=== PATIENT | male | born 1970 | race Caucasian/White ===

== ENCOUNTER 2022-11-27 22:21 | Inpatient (IN) | payer BC, SELFPAY ==
[2022-11-27 23:17] VITALS: BMI 38.5
[2022-11-27] MEDS ORDERED: Dextrose 50% Abboject 50 ML SYRINGE SLOW IVP PRN (23:53)
[2022-11-27] MEDS ORDERED: Acetaminophen 325 MG TAB PO PRN (23:53)
[2022-11-27] MEDS ORDERED: Dextrose 5% in Water 1,000 ML IV PRN (23:53)
[2022-11-27] MEDS ORDERED: Ondansetron PF 4 MG/2 ML Vial IVP PRN (23:53)
[2022-11-27] MEDS ORDERED: Ondansetron ODT 4 MG TAB PO PRN (23:53)
[2022-11-27] MEDS ORDERED: Glucagon 1 MG/ML KIT IM PRN (23:53)
[2022-11-28 00:13] LABS: #Basophils 0.1 thou/uL (0.0-0.2); #Eosinphils 0.2 thou/uL (0.0-0.7); #Monocytes 0.7 thou/uL (0.11-0.59); #Neutrophils 5.6 thou/uL (1.40-6.50); %Basophils 1.3 % (0.0-1.0); %Eosinophils 1.9 % (0.0-10.0); %Lymphocytes 26.6 % (21.0-51.0); %Monocytes 7.5 % (0.0-10.0); %Neutrophils 62.4 % (42.0-75.0); Hemoglobin 13.1 g/dL (14.0-18.0); Mean Corpuscular HGB CONC 34.6 g/dL (32.0-36.0); Mean Corpuscular Hemoglobin 29.5 pg (27.0-31.0); Mean Corpuscular Volume 85.4 fl (78.0-98.0); Mean Platelet Volume 12.7 fL (7.4-10.4); Platelet Count 167 10x3/uL (130-400); RBC Distribution Width 12.6 % (11.5-14.5); Red Blood Cell (RBC) Count 4.44 mill/uL (4.70-6.10)
[2022-11-28 00:34] LABS: Hemoglobin A1c 11.3 % (4.0-6.0)
[2022-11-28 00:35] LABS: ALT (SGPT) 20 U/L (8-55); AST (SGOT) 20 U/L (5-34); Albumin 3.7 g/dL (3.5-5.0); Alkaline Phosphatase 92 U/L (40-110); Anion Gap 13 mmol/L (10-20); BUN (Urea Nitrogen) 13 mg/dL (8.9-20.6); Bilirubin, Total 0.4 mg/dL (0.2-1.2); Calc. Creatinine Clearance 121 mL/min (70-130); Calcium 8.8 mg/dL (7.8-10.44); Carbon Dioxide 22 mmol/L (22-29); Chloride 107 mmol/L (98-107); Estimated GFR 69; Glucose 293 mg/dL (70-105); Magnesium 2.1 mg/dL (1.6-2.6); Potassium 3.4 mmol/L (3.5-5.1); Protein, Total 6.7 g/dL (6.0-8.3); Sodium 139 mmol/L (136-145)
[2022-11-28 05:37] LABS: Cardiac Risk 3.2 (Less than 4.5)
[2022-11-28] MEDS: HumaLOG 300 UNITS/3 ML VIAL SC PRN ×3 (06:39→19:00)
[2022-11-28] MEDS ORDERED: Potassium Chloride 20 MEQ TAB PO SCH (08:15)
[2022-11-28] MEDS ORDERED: Lorazepam 2 MG/ML VIAL SLOW IVP SCH ×2 (09:00)
[2022-11-28] MEDS: Aspirin 81 mg Enteric Coated Tablet PO SCH (09:33)
[2022-11-28] MEDS: hydrALAZINE 20 MG/ML VIAL SLOW IVP PRN ×2 (09:38→20:20)
[2022-11-28] MEDS ORDERED: Clopidogrel Bisulfate 75 MG TAB PO SCH (10:00)
[2022-11-28] MEDS: Atorvastatin Calcium 40 MG TAB PO SCH (20:20)
[2022-11-29] MEDS: HumaLOG 300 UNITS/3 ML VIAL SC PRN ×5 (00:22→20:21)
[2022-11-29] MEDS: hydrALAZINE 20 MG/ML VIAL SLOW IVP PRN (05:25)
[2022-11-29 05:59] LABS: Anion Gap 10 mmol/L (10-20); BUN (Urea Nitrogen) 11 mg/dL (8.9-20.6); Calc. Creatinine Clearance 124 mL/min (70-130); Calcium 9.6 mg/dL (7.8-10.44); Carbon Dioxide 24 mmol/L (22-29); Chloride 107 mmol/L (98-107); Estimated GFR 72; Glucose 246 mg/dL (70-105); Magnesium 2.1 mg/dL (1.6-2.6); Potassium 3.3 mmol/L (3.5-5.1); Sodium 138 mmol/L (136-145)
[2022-11-29 06:39] LABS: #Basophils 0.1 thou/uL (0.0-0.2); #Eosinphils 0.2 thou/uL (0.0-0.7); #Monocytes 0.7 thou/uL (0.11-0.59); #Neutrophils 4.5 thou/uL (1.40-6.50); %Basophils 1.2 % (0.0-1.0); %Eosinophils 2.5 % (0.0-10.0); %Lymphocytes 31.5 % (21.0-51.0); %Monocytes 8.3 % (0.0-10.0); %Neutrophils 56.3 % (42.0-75.0); Hemoglobin 14.4 g/dL (14.0-18.0); Mean Corpuscular HGB CONC 34.9 g/dL (32.0-36.0); Mean Corpuscular Hemoglobin 29.4 pg (27.0-31.0); Mean Corpuscular Volume 84.5 fl (78.0-98.0); Mean Platelet Volume 13.3 fL (7.4-10.4); Platelet Count 183 10x3/uL (130-400); RBC Distribution Width 12.8 % (11.5-14.5); Red Blood Cell (RBC) Count 4.89 mill/uL (4.70-6.10); White Blood Cell (WBC) Count 8.1 10x3/uL (4.8-10.8)
[2022-11-29] MEDS ORDERED: Potassium Chloride 20 MEQ TAB PO SCH (09:45)
[2022-11-29] MEDS: Aspirin 81 mg Enteric Coated Tablet PO SCH (09:48)
[2022-11-29] MEDS: Clopidogrel Bisulfate 75 MG TAB PO SCH (09:49)
[2022-11-29] MEDS: Alogliptin 25 MG TAB PO SCH (09:49)
[2022-11-29] MEDS ORDERED: Labetalol HCl 100 MG/20 ML VIAL SLOW IVP PRN (17:21)
[2022-11-29] MEDS: Atorvastatin Calcium 40 MG TAB PO SCH (20:21)
[2022-11-30] MEDS: HumaLOG 300 UNITS/3 ML VIAL SC PRN ×3 (05:18→18:06)
[2022-11-30 05:30] LABS: #Basophils 0.1 thou/uL (0.0-0.2); #Eosinphils 0.2 thou/uL (0.0-0.7); #Monocytes 0.8 thou/uL (0.11-0.59); #Neutrophils 4.2 thou/uL (1.40-6.50); %Basophils 1.2 % (0.0-1.0); %Eosinophils 2.7 % (0.0-10.0); %Lymphocytes 34.6 % (21.0-51.0); %Monocytes 9.5 % (0.0-10.0); %Neutrophils 51.6 % (42.0-75.0); Hemoglobin 14.3 g/dL (14.0-18.0); Mean Corpuscular Hemoglobin 28.7 pg (27.0-31.0); Mean Corpuscular Volume 84.3 fl (78.0-98.0); Mean Platelet Volume 13.4 fL (7.4-10.4); Platelet Count 180 10x3/uL (130-400); RBC Distribution Width 12.9 % (11.5-14.5); Red Blood Cell (RBC) Count 4.98 mill/uL (4.70-6.10); White Blood Cell (WBC) Count 8.1 10x3/uL (4.8-10.8)
[2022-11-30 05:53] LABS: Anion Gap 12 mmol/L (10-20); BUN (Urea Nitrogen) 14 mg/dL (8.9-20.6); Calc. Creatinine Clearance 116 mL/min (70-130); Calcium 9.3 mg/dL (7.8-10.44); Carbon Dioxide 22 mmol/L (22-29); Chloride 105 mmol/L (98-107); Estimated GFR 66; Glucose 189 mg/dL (70-105); Potassium 3.3 mmol/L (3.5-5.1); Sodium 136 mmol/L (136-145)
[2022-11-30] MEDS: Alogliptin 25 MG TAB PO SCH (08:23)
[2022-11-30] MEDS: Clopidogrel Bisulfate 75 MG TAB PO SCH (08:24)
[2022-11-30] MEDS: Aspirin 81 mg Enteric Coated Tablet PO SCH (08:24)
[2022-11-30] MEDS ORDERED: Potassium Chloride 20 MEQ TAB PO SCH ×2 (08:30→12:00)
[2022-11-30] MEDS ORDERED: Lisinopril 20 MG TAB PO SCH (09:00)
[2022-11-30] MEDS ORDERED: Carvedilol 3.125 MG TAB PO SCH ×2 (11:45→17:00)
[2022-11-30 18:29] VITALS: BP 141/95; TEMP 97.2
== END 2022-11-30 19:20 | disposition home or self-care (01) | DRG 66 ==
LOC: NEURO 22:49 → OBSVTOIN 11-28 10:49
PROVIDERS: ADMIT Student in an Organized Health Care Education/Training Program; ATTEND Internal Medicine
DX: I63.9 Cerebral infarction, unspecified (principal); E11.65 Type 2 diabetes mellitus with hyperglycemia; I10 Essential (primary) hypertension; R29.810 Facial weakness; R47.1 Dysarthria and anarthria; E66.9 Obesity, unspecified; Z98.890 Other specified postprocedural states; Z79.899 Other long term (current) drug therapy; Z79.84 Long term (current) use of oral hypoglycemic drugs; Z68.38 Body mass index [BMI] 38.0-38.9, adult; Z83.3 Family history of diabetes mellitus
CPT/HCPCS: 36415; 36416; 70551; 80048; 80053; 80061; 83036; 83735; 84443; 85025; 93306; 93880; 96374; G0378; J0360; J1815